=== PATIENT | female | born 1955 | race Caucasian/White ===

== ENCOUNTER 2018-11-17 16:55 | Inpatient (IN) | payer OTHER ==
[~2018-11-17] VITALS: Ht 162.6 cm; Wt 70.3 kg
[2018-11-17 19:30] VITALS: Ht 162.6 cm; Wt 70.3 kg
[2018-11-17 20:30] VITALS: BP 131/73; RESP 18
[2018-11-17] MEDS ORDERED: HEPA500021 SQ (20:38)
[2018-11-17] MEDS ORDERED: NITR0.4T32 SL (20:38)
[2018-11-17] MEDS ORDERED: ACET-141 PO (20:38)
[2018-11-17] MEDS ORDERED: ATOR-2 PO (20:38)
[2018-11-17] MEDS ORDERED: DEXT50DI9 IV (20:38)
[2018-11-17] MEDS ORDERED: CARV12.579 PO (20:38)
[2018-11-17] MEDS ORDERED: ACET500T76 PO (20:38)
[2018-11-17] MEDS ORDERED: ASPI-817 PO (20:38)
[2018-11-17] MEDS ORDERED: LISI40TA3 PO (20:38)
[2018-11-17] MEDS ORDERED: LANT3I SC (20:38)
[2018-11-17] MEDS ORDERED: POLY17PO28 PO (20:38)
[2018-11-17] MEDS ORDERED: GLUC1VIA6 IM (20:38)
[2018-11-17] MEDS ORDERED: HYDR-3670 PO (20:38)
[2018-11-17] MEDS: INSULIN ASPART [NOVOLOG] 3 ML PEN SC SCH (21:00)
[2018-11-17] MEDS ORDERED: GLUCOSE GEL 15 GRAM TUBE PO PRN ×2 (21:30)
[2018-11-17] MEDS ORDERED: DEXTROSE 50% 50 ML SYRINGE IV PRN ×2 (21:30)
[2018-11-17] MEDS ORDERED: GLUCAGON 1 MG INJ IM PRN (21:30)
[2018-11-17] MEDS ORDERED: GLUCOSE GEL 15 GRAM TUBE BUCCAL PRN (21:30)
[2018-11-17] MEDS ORDERED: ATORVASTATIN 80 MG TAB PO SCH (21:40)
[2018-11-17] MEDS ORDERED: NITROGLYCERIN (SL) 0.4 MG TAB SL PRN (22:00)
[2018-11-17] MEDS ORDERED: [UNRECOGNIZED DRUG - OTHER] XX SCH (22:00)
[2018-11-17] MEDS ORDERED: ACETAMINOPHEN 500 MG TAB PO PRN ×2 (22:00)
[2018-11-18] VITALS (7 sets, daily range): BP systolic 122–187; BP diastolic 59–80; PULSE 62–80; RESP 18–20
[2018-11-18] MEDS: INSULIN ASPART [NOVOLOG] 3 ML PEN SC SCH ×2 (07:04→11:42)
--- NOTE | 2018-11-18 07:28 | CONS ---
Assessment/Plan Assessment/Plan Assessment/Plan (Daily) 63 year old female with and 3v CAD per report. Will need to review angio and echo once received from [facility]. Will repeat echo today and obtain carotid duplex Consultation Date/Type/Reason Admit Date/Time Nov 17, 2018 at 19:18 Date of Consultation: Nov 18, [address] Surgery Reason for Consultation eval for AVR/CABG Date/Time of Note DATE: 11/18/18 TIME: 07:24 Hx of Present Illness 63 year old female admitted to [facility] for SOB and chest pain. Echo showed severe and angio showed severe 3V CAD. Pt transferred here for evaluation of surgery. No discs sent with patient. Constitutional: No no complaints, No improved, No chills, No diaphoresis, No disoriented, No febrile, No poor po, No requiring IVF, No requiring O2, No other Eyes: No no complaints, No pain, No discharge, No redness, No visual change, No other ENT: No no complaints, No bleeding, No pain, No congestion, No discharge, No dysphagia, No sore throat, No other Respiratory: shortness of breath Cardiovascular: chest pain Gastrointestinal: No no complaints, No pain, No blood, No constipation, No decreased appetite, No diarrhea, No flatus, No nausea, No passing stool, No v omiting, No other Genitourinary: No no complaints, No bleeding, No dysuria, No discharge, No flank pain, No hematuria, No other Musculoskeletal: No no complaints, No back pain, No bone/joint pain, No neck pain, No restricted range of motion, No swelling, No other Skin: No no complaints, No bruising, No erythema, No laceration, No pruritis, No rash, No skin lesions, No other Neurologic: No no complaints, No confusion, No dizziness, No focal-weakness, No headache, No syncope, No seizure, No other Endocrine: No no complaints, No polyuria, No polydypsia, No dry skin, No temp intolerance, No other Immunologic: No no complaints, No immunodeficiency, No pruritis, No rhinitis, No urticaria, No other Past Medical History Home Meds Reported Medications Polyethylene Glycol* (Polyethylene Glycol*) 17 Gm Powd.pack, 17 GM PO DAILY for constipation, #30 PACKET 11/17/18 Nitroglycerin* (Nitroglycerin* SL) 0.4 Mg Tab.subl, 0.4 MG SL Q5MIN PRN for CHEST PAIN, BOTTLE 11/17/18 Hydralazine Hcl* (Hydralazine Hcl*) 10 Mg Tablet, 10 MG PO Q8 PRN for ELEVATED SYSTOLIC BP, #90 TAB 11/17/18 Glucagon HCl (Glucagon HCl) 1 Mg Vial, 1 MG IM q15 min for if blood glucose <70, VIAL 11/17/18 Dextrose 50%-Water (Dextrose 50%/Water Syringe) 50 Ml Disp.syrin, 25 ML IV q15min for if blood glucose between 50-69 11/17/18 Dextrose 50%-Water (Dextrose 50%/Water Syringe) 50 Ml Disp.syrin, 50 ML IV q15min PRN for if blood glucose less than 50 11/17/18 Acetaminophen* (Acetaminophen*) 500 MG Extra Strength Tablet, 500 MG PO Q8 PRN for MILD PAIN LEVEL 1-3, TAB 11/17/18 Acetaminophen (PAIN & FEVER) 500 Mg Tablet, 500 MG PO Q6 PRN for FEVER, TAB 11/17/18 Lisinopril* (Lisinopril*) 40 Mg Tablet, 40 MG PO DAILY, TAB 11/17/18 Insulin Glargine* (Lantus*) 100 Unit/Ml Soln, 5 UNIT SC QHS, #1 VIAL 11/17/18 Heparin Sodium,Porcine/Pf (HEPARIN SOD 5,000 UNIT/ 0.5 ML) 5,000 Unit/0.5 Ml Vial, 5000 UNIT SQ Q8, VIAL 11/17/18 Carvedilol* (Carvedilol*) 12.5 Mg Tablet, 12.5 MG PO BID, TAB 11/17/18 Atorvastatin* (Atorvastatin*) 80 Mg Tablet, 80 MG PO QHS, TAB 11/17/18 Aspirin* (Aspirin* EC) 81 Mg Tablet.dr, 81 MG PO DAILY, TAB 11/17/18 Medications Current Medications Insulin Aspart (Novolog Insulin Pen) NOVOLOG *MODERATE* ALGORI... AC MEALS AND BEDTIME SC Last administered on 11/18/18at 07:04; Admin Dose 4 UNIT; Start 11/17/18 at 21:00 Miscellaneous Information 1 ea NOTE XX ; Start 11/17/18 at 21:30 Glucose (Glutose) 15 gm Q15M PRN PO DECREASED GLUCOSE; Start 11/17/18 at 21:30 Glucose (Glutose) 22.5 gm Q15M PRN PO DECREASED GLUCOSE; Start 11/17/18 at 21:30 Dextrose (D50w Syringe) 25 ml Q15M PRN IV DECREASED GLUCOSE; Start 11/17/18 at 21:30 Dextrose (D50w Syringe) 50 ml Q15M PRN IV DECREASED GLUCOSE; Start 11/17/18 at 21:30 Glucagon (Glucagen) 1 mg Q15M PRN IM DECREASED GLUCOSE; Start 11/17/18 at 21:30 Glucose (Glutose) 15 gm Q15M PRN BUCCAL DECREASED GLUCOSE; Start 11/17/18 at 21:30 Acetaminophen (Tylenol Tab) 500 mg Q6 PRN PO FEVER; Start 11/17/18 at 22:00 Acetaminophen (Tylenol Tab) 500 mg Q8 PRN PO MILD PAIN LEVEL 1-3 Last administered on 11/17/18at 23:51; Admin Dose 500 MG; Start 11/17/18 at 22:00 Atorvastatin Calcium (Lipitor) 80 mg QHS PO Last administered on 11/17/18at 22:02; Admin Dose 80 MG; Start 11/17/18 at 21:40 Carvedilol (Coreg) 12.5 mg BID PO ; Start 11/17/18 at 21:40 Hydralazine HCl (Apresoline) 10 mg Q8 PRN PO ELEVATED SYSTOLIC BP Last admi nistered on 11/18/18at 04:26; Admin Dose 10 MG; Start 11/17/18 at 22:00 Lisinopril (Zestril) 40 mg DAILY PO ; Start 11/18/18 at 09:00 Nitroglycerin (Nitroglycerin (Sl Tab) 0.4 Mg) 0.4 tab [id number] PRN SL CHEST PAIN; Start 11/17/18 at 22:00 Polyethylene Glycol (Miralax) 17 gm DAILY PRN PO constipation; Start 11/18/18 at 09:00 Allergies: Coded Allergies: No Known Allergies (Verified Allergy, Unknown, 11/17/18) Past Surgical History Past Surgical Hx: no surgical history Family History Significant Family History: no pertinent family hx Social History Alcohol Use: none Smoking Status: Never smoker Exam/Review of Systems Exam Vitals Vital Signs Date Temp Pulse Resp B/P (MAP) Pulse Ox O2 O2 Flow FiO2 Time Delivery Rate 11/18/18 69 20 156/64 06:11 (94) 11/18/18 98.6 98 04:10 Constitutional: alert, oriented, well developed Psych: no complaints, nl mood/affect Head: normocephalic, atraumatic Eyes: nl conjunctiva, EOMI, nl lids, nl sclera, PERRL ENMT: nl external ears & nose, nl lips & teeth, nl nasal mucosa & septum Neck: supple, non-tender Respiratory: clear to auscultation, normal air movement Cardiovascular: systolic murmur Gastrointestinal: soft, nl liver, spleen, non-tender Musculoskeletal: nl extremities to inspection, nl gait and stance Extremities: normal pulses Neurological: 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 AC MEALS AND BEDTIME SC Last administered on 11/18/18at 07:04; Admin Dose 4 UNIT; Start 11/17/18 at 21:00 Miscellaneous Information 1 ea NOTE XX ; Start 11/17/18 at 21:30 Glucose (Glutose) 15 gm Q15M PRN PO DECREASED GLUCOSE; Start 11/17/18 at 21:30 Glucose (Glutose) 22.5 gm Q15M PRN PO DECREASED GLUCOSE; Start 11/17/18 at 21:30 Dextrose (D50w Syringe) 25 ml Q15M PRN IV DECREASED GLUCOSE; Start 11/17/18 at 21:30 Dextrose (D50w Syringe) 50 ml Q15M PRN IV DECREASED GLUCOSE; Start 11/17/18 at 21:30 Glucagon (Glucagen) 1 mg Q15M PRN IM DECREASED GLUCOSE; Start 11/17/18 at 21:30 Glucose (Glutose) 15 gm Q15M PRN BUCCAL DECREASED GLUCOSE; Start 11/17/18 at 21:30 Acetaminophen (Tylenol Tab) 500 mg Q6 PRN PO FEVER; Start 11/17/18 at 22:00 Acetaminophen (Tylenol Tab) 500 mg Q8 PRN PO MILD PAIN LEVEL 1-3 Last administered on 11/17/18at 23:51; Admin Dose 500 MG; Start 11/17/18 at 22:00 Atorvastatin Calcium (Lipitor) 80 mg QHS PO Last administered on 11/17/18at 22:02; Admin Dose 80 MG; Start 11/17/18 at 21:40 Carvedilol (Coreg) 12.5 mg BID PO ; Start 11/17/18 at 21:40 Hydralazine HCl (Apresoline) 10 mg Q8 PRN PO ELEVATED SYSTOLIC BP Last administered on 11/18/18at 04:26; Admin Dose 10 MG; Start 11/17/18 at 22:00 Lisinopril (Zestril) 40 mg DAILY PO ; Start 11/18/18 at 09:00 Nitroglycerin (Nitroglycerin (Sl Tab) 0.4 Mg) 0.4 tab [id number] PRN SL CHEST PAIN; Start 11/17/18 at 22:00 Polyethylene Glycol (Miralax) 17 gm DAILY PRN PO constipation; Start 11/18/18 at 09:00 ELAINA ZAMAN MD Nov 18, 2018 07:28
[2018-11-18] MEDS ORDERED: POLYETHYLENE GLYCOL 17 GM PACKET PO SCH (09:00)
[2018-11-18] MEDS ORDERED: POLYETHYLENE GLYCOL 17 GM PACKET PO PRN (09:00)
[2018-11-18] MEDS ORDERED: LISINOPRIL 20 MG TAB PO SCH (09:00)
--- NOTE | 2018-11-18 10:18 | HP ---
DATE OF ADMISSION: 11/17/2018 REASON FOR VISIT: Three-vessel coronary artery disease and severe aortic stenosis. HISTORY OF PRESENT ILLNESS: A 63-year-old female with a history of hypertension, type 2 diabetes felisha litus, and hyperlipidemia presented to [facility] several days prior to admission with complaint of chest pain. The patient was diagnosed with hypertensive urgency and acute non-STEMI. 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 The patient was found to have 3-vessel cell of coronary artery diseas e and severe aortic stenosis. She was diuresed. The patient is now transferred to our facility to [facility] coronary artery bypass graft and aortic valve replacement. REVIEW OF SYSTEMS: She denies chest pain at rest. The patient has had exertional chest pain and dys pnea on exertion. PAST MEDICAL HISTORY: 1. Hypertension. 2. Type 2 diabetes mellitus. 3. Hyperlipidemia. 4. Recent non-STEMI. MEDICATIONS ON TRANSFER: 1. Heparin 5000 units q.8 hours. 2. Lipitor 80 mg at bedtime. 3. Carvedilol 12.5 mg b.i.d. 4. Hydralazine 10 mg q.8 hours as needed. 5. Sublingual nitroglycerin as needed. 6. Aspirin 81 mg daily. SOCIAL HISTORY: The patient lives at home. She denies tobacco or alcohol use. PHYSICAL EXAMINATION: GENERAL: Well-developed, well-nourished female who is in no apparent distress. VITAL SIGNS: Stable. She is afebrile. HEENT: Extraocular muscles intact. Pupils are equal and reactive to light bilaterally. Sclerae are anicteric. Oropharynx is clear and moist. NECK: Supple, no JVD, no carotid bruits. LUNGS: Clear to auscultation bilaterally. CARDIAC: Regular rate and rhythm. Harsh murmur is heard over the left sternum. ABDOMEN: Soft, nontender, nondistended, normoactive bowel sounds. EXTREMITIES: No clubbing, cyanosis, or edema. NEUROLOGICAL: Nonfocal. ASSESSMENT: 1. A 63-year-old female with a recent non-ST elevation myocardial infarction. 2. Three-vessel coronary artery disease. 3. Severe aortic stenosis. 4. Hypertension. 5. Type 2 diabetes mellitus. 6. Hyperlipidemia. PLAN: 1. Admit to telemetry. 2. Resume previous medications. 3. Hold aspirin. 4. Cardiothoracic and cardiology consultations were requested. Dictated By: GENO SANZ/DONI Conf#: [id number] DID#: [id number] CC: EDILMA SKINNER DO; ELAINA ZAMAN MD;*EndCC*
--- NOTE | 2018-11-18 12:52 | CONS ---
Assessment/Plan Assessment/Plan Hospital Course (Demo Recall) CAD with triple-vessel coronary artery disease as per report Severe aortic stenosis as per report Non-ST elevation myocardial infarction Hypertension As per records in the chart, progress note states patient with triple-vessel coronary disease and severe aortic stenosis, needs surgical intervention Echocardiogram to be done Awaiting CT surgery review of coronary angiogram Start aspirin therapy Consultation Date/Type/Reason Admit Date/Time Nov 17, 2018 at 19:18 Type of Consult Cardiology Reason for Consultation CAD and aortic stenosis Date/Time of Note DATE: 11/18/18 TIME: 12:49 Hx of Present Illness This is a 63-year-old female who presented to outside facility with symptoms of chest pain and shortness of breath. Patient found to have non-ST elevation myocardial infarction. She underwent work-up including coronary angiogram which demonstrated triple-vessel coronary artery disease, echocardiogram which demons trated severe aortic stenosis. She was transferred here for surgical evaluation. She complains of exertional shortness of breath and chest pain but no symptoms at rest. Denies any current dizziness or lightheadedness. 12 point review of systems was performed with all pertinent positives and negatives mentioned above and all else is negative Past Medical History Medical History: coronary artery disease, high cholesterol, hypertension Home Meds Reported Medications Polyethylene Glycol* (Polyethylene Glycol*) 17 Gm Powd.pack, 17 GM PO DAILY for constipation, #30 PACKET 11/17/18 Nitroglycerin* (Nitroglycerin* SL) 0.4 Mg Tab.subl, 0.4 MG SL Q5MIN PRN for CHEST PAIN, BOTTLE 11/17/18 Hydralazine Hcl* (Hydralazine Hcl*) 10 Mg Tablet, 10 MG PO Q8 PRN for ELEVATED SYSTOLIC BP, #90 TAB 11/17/18 Glucagon HCl (Glucagon HCl) 1 Mg Vial, 1 MG IM q15 min for if blood glucose <70, VIAL 11/17/18 Dextrose 50%-Water (Dextrose 50%/Water Syringe) 50 Ml Disp.syrin, 25 ML IV q15min for if blood glucose between 50-69 11/17/18 Dextrose 50%-Water (Dextrose 50%/Water Syringe) 50 Ml Disp.syrin, 50 ML IV q15min PRN for if blood glucose less than 50 11/17/18 Acetaminophen* (Acetaminophen*) 500 MG Extra Strength Tablet, 500 MG PO Q8 PRN for MILD PAIN LEVEL 1-3, TAB 11/17/18 Acetaminophen (PAIN & FEVER) 500 Mg Tablet, 500 MG PO Q6 PRN for FEVER, TAB 11/17/18 Lisinopril* (Lisinopril*) 40 Mg Tablet, 40 MG PO DAILY, TAB 11/17/18 Insulin Glargine* (Lantus*) 100 Unit/Ml Soln, 5 UNIT SC QHS, #1 VIAL 11/17/18 Heparin Sodium,Porcine/Pf (HEPARIN SOD 5,000 UNIT/ 0.5 ML) 5,000 Unit/0.5 Ml Vial, 5000 UNIT SQ Q8, VIAL 11/17/18 Carvedilol* (Carvedilol*) 12.5 Mg Tablet, 12.5 MG PO BID, TAB 11/17/18 Atorvastatin* (Atorvastatin*) 80 Mg Tablet, 80 MG PO QHS, TAB 11/17/18 Discontinued Reported Medications Aspirin* (Aspirin* EC) 81 Mg Tablet.dr, 81 MG PO DAILY, TAB 11/17/18 Medications Current Medications Insulin Aspart (Novolog Insulin Pen) NOVOLOG *MODERATE* ALGORI... AC MEALS AND BEDTIME SC Last administered on 11/18/18at 11:42; Admin Dose 8 UNIT; Start 11/17/18 at 21:00 Miscellaneous Information 1 ea NOTE XX ; Start 11/17/18 at 21:30 Glucose (Glutose) 15 gm Q15M PRN PO DECREASED GLUCOSE; Start 11/17/18 at 21:30 Glucose (Glutose) 22.5 gm Q15M PRN PO DECREASED GLUCOSE; Start 11/17/18 at 21:30 Dextrose (D50w Syringe) 25 ml Q15M PRN IV DECREASED GLUCOSE; Start 11/17/18 at 21:30 Dextrose (D50w Syringe) 50 ml Q15M PRN IV DECREASED GLUCOSE; Start 11/17/18 at 21:30 Glucagon (Glucagen) 1 mg Q15M PRN IM DECREASED GLUCOSE; Start 11/17/18 at 21:30 Glucose (Glutose) 15 gm Q15M PRN BUCCAL DECREASED GLUCOSE; Start 11/17/18 at 21:30 Acetaminophen (Tylenol Tab) 500 mg Q6 PRN PO FEVER; Start 11/17/18 at 22:00 Acetaminophen (Tylenol Tab) 500 mg Q8 PRN PO MILD PAIN LEVEL 1-3 Last administered on 11/17/18at 23:51; Admin Dose 500 MG; Start 11/17/18 at 22:00 Atorvastatin Calcium (Lipitor) 80 mg QHS PO Last administered on 11/17/18at 22:02; Admin Dose 80 MG; Start 11/17/18 at 21:40 Carvedilol (Coreg) 12.5 mg BID PO Last administered on 11/18/18at 08:19; Admin Dose 12.5 MG; Start 11/17/18 at 21:40 Hydralazine HCl (Apresoline) 10 mg Q8 PRN PO ELEVATED SYSTOLIC BP Last administered on 11/18/18at 04:26; Admin Dose 10 MG; Start 11/17/18 at 22:00 Lisinopril (Zestril) 40 mg DAILY PO Last administered on 11/18/18at 08:18; Admin Dose 40 MG; Start 11/18/18 at 09:00 Nitroglycerin (Nitroglycerin (Sl Tab) 0.4 Mg) 0.4 tab [id number] PRN SL CHEST PAIN; Start 11/17/18 at 22:00 Polyethylene Glycol (Miralax) 17 gm DAILY PRN PO constipation; Start 11/18/18 at 09:00 Allergies: Coded Allergies: No Known Allergies (Verified Allergy, Unknown, 11/17/18) Past Surgical History Past Surgical Hx: no surgical history Social History Alcohol Use: none Smoking Status: Never smoker Exam/Review of Systems Vital Signs Vitals Vital Signs Date Temp Pulse Resp B/P (MAP) Pulse Ox O2 O2 Flow FiO2 Time Delivery Rate 11/18/18 98.4 72 20 122/59 100 Room Air 11:06 (80) Exam Constitutional: alert, oriented, well developed Respiratory: other (Coarse breath sounds) Cardiovascular: regular rate and rhythm, systolic murmur Gastrointestinal: soft, non-tender, bowel sounds Extremities: other (No significant edema) Labs Results 24hrs Laboratory Tests Test 11/17/18 22:00 11/18/18 06:59 11/18/18 11:39 Bedside Glucose 137 193 267 H Medications Medications Current Medications Insulin Aspart (Novolog Insulin Pen) NOVOLOG *MODERATE* ALGORI... AC MEALS AND BEDTIME SC Last administered on 11/18/18at 11:42; Admin Dose 8 UNIT; Start 11/17/18 at 21:00 Miscellaneous Information 1 ea NOTE XX ; Start 11/17/18 at 21:30 Glucose (Glutose) 15 gm Q15M PRN PO DECREASED GLUCOSE; Start 11/17/18 at 21:30 Glucose (Glutose) 22.5 gm Q15M PRN PO DECREASED GLUCOSE; Start 11/17/18 at 21:30 Dextrose (D50w Syringe) 25 ml Q15M PRN IV DECREASED GLUCOSE; Start 11/17/18 at 21:30 Dextrose (D50w Syringe) 50 ml Q15M PRN IV DECREASED GLUCOSE; Start 11/17/18 at 21:30 Glucagon (Glucagen) 1 mg Q15M PRN IM DECREASED GLUCOSE; Start 11/17/18 at 21:30 Glucose (Glutose) 15 gm Q15M PRN BUCCAL DECREASED GLUCOSE; Start 11/17/18 at 21:30 Acetaminophen (Tylenol Tab) 500 mg Q6 PRN PO FEVER; Start 11/17/18 at 22:00 Acetaminophen (Tylenol Tab) 500 mg Q8 PRN PO MILD PAIN LEVEL 1-3 Last administered on 11/17/18at 23:51; Admin Dose 500 MG; Start 11/17/18 at 22:00 Atorvastatin Calcium (Lipitor) 80 mg QHS PO Last administered on 11/17/18at 22:02; Admin Dose 80 MG; Start 11/17/18 at 21:40 Carvedilol (Coreg) 12.5 mg BID PO Last administered on 11/18/18at 08:19; Admin Dose 12.5 MG; Start 11/17/18 at 21:40 Hydralazine HCl (Apresoline) 10 mg Q8 PRN PO ELEVATED SYSTOLIC BP Last administered on 11/18/18at 04:26; Admin Dose 10 MG; Start 11/17/18 at 22:00 Lisinopril (Zestril) 40 mg DAILY PO Last administered on 11/18/18at 08:18; Admin Dose 40 MG; Start 11/18/18 at 09:00 Nitroglycerin (Nitroglycerin (Sl Tab) 0.4 Mg) 0.4 tab [id number] PRN SL CHEST PAIN; Start 11/17/18 at 22:00 Polyethylene Glycol (Miralax) 17 gm DAILY PRN PO constipation; Start 11/18/18 at 09:00 Leopoldo Hopper DO Nov 18, 2018 12:52
[2018-11-18] MEDS ORDERED: ASPIRIN 81 MG TAB PO SCH (13:00)
--- NOTE | 2018-11-18 13:09 | RADRPT ---
Echocardiogram Report Patient Name: DAYRON JOHNSONPatient ID: [id number] : 1955 (63y 4m)Study Date: 11/18/2018 7:42:03 AM Gender: FAccession #: [id number] Tech: Fe Mix RDCS Location: 525 Ref.Physician: ELAINA ZAMAN Height(Cm): BSA: Weight(Kg): Quality: AdequateOrder Physician: ELAINA ZAMAN Account #: Procedures: Echocardiographic Report: Transthoracic echocardiogram with complete 2D, M-Mode, and doppler examination. Indications: Alortic Stenosis. Measurements: 2D/M Mode Doppler Measurement Value Normal Range Measurement Value Normal Range LVIDd 2D 4.4 [ 3.8 - 5.2 ] cm SADIA VTI 0.9 [ 2.0 - 4.0 ] cm2 LVIDs 2D 3.0 [ 2.2 - 3.5 ] cm AV Mean Ricardo 3.3 [ 70.0 - 90.0 ] cm/sec LVPWd 2D 1.1 [ 0.6 - 0.9 ] cm AV Mean PG 47.0 [ 2.0 - 4.0 ] mmHg IVSd 2D 1.0 [ 0.6 - 0.9 ] cm AV Peak Ricardo 4.1 [ 100.0 - 170.0 ] cm/sec AoR Diam 2D 2.3 [ 2.3 - 3.1 ] cm AV Peak PG 68.0 [ 2.0 - 9.0 ] mmHg EDV 2D 87.2 [ 46.0 - 106.0 ] ml AV VTI 117.0 cm ESV 2D 34.2 [ 14.0 - 42.0 ] ml LVOT Mean Ricardo 0.9 [ 60.0 - 80.0 ] cm/sec EF 2D 60.8 [ 54.0 - 74.0 ] percent LVOT Mean PG 4.0 [ 1.0 - 3.0 ] mmHg LA Dimen 2D 3.8 [ 2.7 - 3.8 ] cm LVOT Peak Ricardo 1.4 [ 70.0 - 110.0 ] cm/sec LVOT Diam 2.0 [ 2.1 - 2.5 ] cm LVOT Peak PG 8.0 [ 2.0 - 6.0 ] mmHg LVOT VTI 33.4 [ 20.0 - 30.0 ] cm MV E Peak Ricardo 1.3 [ 60.0 - 130.0 ] cm/sec MV A Peak Ricardo 1.1 [ 100.0 - 120.0 ] cm/sec MV E/A 1.2 [ 0.8 - 1.5 ] ratio MV Peak PG 12.4 [ 1.0 - 10.0 ] mmHg MV Mean Ricardo 105.4 cm/sec MV Mean PG 5.1 mmHg MV Decel Time 194 [ 104 - 258 ] msec Lat E` Ricardo 176.0 [ 10.0 - 15.0 ] cm/sec Lateral E/E` 20.4 [ 1.0 - 2.0 ] ratio Med E` Ricardo 0.1 cm/sec MV E/A 1.2 [ 0.8 - 1.5 ] ratio MV VTI 46.3 cm TR Peak Ricardo 2.3 [ 100.0 - 280.0 ] cm/sec TR Peak PG 22.0 mmHg RVSP 25.0 [ 10.0 - 36.0 ] mmHg RA Pressure 3.0 mmHg Findings: Left Ventricle: Normal left ventricular systolic function. Normal left ventricular cavity size. Mild concentric left ventricular hypertrophy. Ejection fraction is visually estimated at 55-60 %. Tissue Doppler/Mitral Doppler indices are consistent with pseudonormalization with mildly elevated left atrial pressure (Stage II diastolic dysfunction). Right Ventricle: Normal right ventricular size. Normal right ventricular systolic function. Left Atrium: The left atrium is normal in size. Right Atrium: The right atrium is normal in size. Mitral Valve: Moderate mitral leaflet calcification. Moderate mitral annular calcification. Trace mitral regurgitation. Aortic Valve: Severe aortic stenosis. Aortic valve Max velocity 4.22 m/sec. Max PG 71.00 mmHg. Mean PG 47.00 mmHg. Aortic valve area 0.90 cm2. Aortic cusps appear severely calcified. Mild aortic valve regurgitation. Tricuspid Valve: Normal appearance of the tricuspid valve. The estimated Peak RVSP is 25 mmHg. There is mild tricuspid regurgitation. Pulmonic Valve: Pulmonic valve not well visualized. Pericardium: Normal pericardium with no significant pericardial effusion. Aorta: Normal aortic root. IVC: Normal size and normal respiratory collapse consistent with normal right atrial pressure. Conclusions: Normal left ventricular systolic function. Normal left ventricular cavity size. Mild concentric left ventricular hypertrophy. Ejection fraction is visually estimated at 55-60 %. Tissue Doppler/Mitral Doppler indices are consistent with pseudonormalization with mildly elevated left atrial pressure (Stage II diastolic dysfunction). Normal right ventricular size. Normal right ventricular systolic function. Severe aortic stenosis. Mean PG 47.00 mmHg. Mild aortic valve regurgitation. Trace mitral regurgitation. There is mild tricuspid regurgitation. Normal pericardium with no significant pericardial effusion. Electronically Signed By: Leopoldo Hopper 2018-11-18 13:08:57 PDT
--- NOTE | 2018-11-21 02:08 | DS ---
DATE OF ADMISSION: 11/17/2018 DATE OF DISCHARGE: 11/18/2018 DISCHARGE DIAGNOSES: 1. A 63-year-old female with recent acute non-ST elevation myocardial infarction. 2. Three-vessel coronary artery disease. 3. Severe aortic stenosis. 4. Hypertension. 5. Type 2 diabetes mellitus. 6. Hyperlipidemia. HOSPITAL COURSE: A 63-year-old female with multiple other medical problems that was transferred from [facility] after she presented with complaint of chest pain and shortness of breath. The patient was diagnosed with acute non-STEMI. 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 The aortic valve measured 0.7 cm. The patient was diuresed. She was transferred to our facility in order to undergo coronary artery by pass graft and aortic valve replacement. However, [facility] The administration tried to secure an anesthesiology and they were unsuccessful. The patie nt was therefore transferred to [facility] in order to undergo the proposed procedur es. Dr. Guadalupe evaluated the patient and agreed with the plan of care. Dr. Hopper was also notified. A 2D echocardiogram showed normal LV function, normal LV cavity size, mild concentric left ventricu lar hypertrophy with ejection fraction estimated at 55% to 60%. Again, severe aortic stenosis and mi ld aortic valve regurgitation was also noted. The patient was transferred to [facility] in sta ble condition. Dictated By: GENO SANZ/DONI Conf#: [id number] DID#: [id number]
== END 2018-11-18 16:15 | disposition short-term general hospital (02) | DRG 282 ==
LOC: TEL 19:18
PROVIDERS: ADMIT Internal Medicine; ATTEND Internal Medicine
DX: I21.4 Non-ST elevation (NSTEMI) myocardial infarction (principal); E11.9 Type 2 diabetes mellitus without complications; I25.10 Atherosclerotic heart disease of native coronary artery without angina pectoris; I35.0 Nonrheumatic aortic (valve) stenosis; I10 Essential (primary) hypertension; E78.5 Hyperlipidemia, unspecified; Z79.82 Long term (current) use of aspirin; Z79.4 Long term (current) use of insulin
CPT/HCPCS: 82962; 93306; 93880; J1815